=== PATIENT | male | born 1995 | race Caucasian/White ===

== ENCOUNTER 2016-07-13 19:58 | Emergency (ER) | payer SELFPAY ==
[~2016-07-13] VITALS: Ht 175.3 cm; Wt 73.0 kg
[~2016-07-13 19:58] MED LIST: ERYT400T4 PO; TRAM50 PO
[2016-07-13 19:59] VITALS: BP 141/84; PULSE 91; RESP 14; TEMP 98.7; O2SAT 99
[2016-07-13] MEDS ORDERED: SODIUM CHLOR 0.9% 1000 ML INJ 1,000 ML IV SCH (20:37)
[2016-07-13] MEDS ORDERED: SODIUM CHLORIDE 0.9% FLUSH 10 ML FLUSH IV FLUSH PRN (20:45)
[2016-07-13] MEDS ORDERED: ONDANSETRON HCL 4 MG/2 ML VIAL IVP ONE (20:45)
[2016-07-13 21:13] LABS: AUTOMATED NEUTROPHIL # 5.2 TH/MM3 (1.8-7.7); BASOPHIL % 0.3 % (0.0-2.0); EOSINOPHIL # 0.2 TH/MM3 (0-0.4); EOSINOPHIL % 1.9 % (0.0-4.0); HEMATOCRIT 44.2 % (39.0-51.0); HEMO FLAGS DIFF FINAL; LYMPH % 27.7 % (9.0-44.0); LYMPHOCYTE # 2.3 TH/MM3 (1.0-4.8); MEAN CORPUSCULAR HGB CONC 35.3 % (32.0-36.0); MONO % 7.1 % (0.0-8.0); PLATELET COUNT 222 TH/MM3 (150-450); RED BLOOD COUNT 5.19 MIL/MM3 (4.50-5.90); WHITE BLOOD COUNT 8.3 TH/MM3 (4.0-11.0)
[2016-07-13 21:28] LABS: ANION GAP 8 MEQ/L (5-15); BLOOD UREA NITROGEN 17 MG/DL (7-18); CHLORIDE 102 MEQ/L (98-107); GLOMERULAR FILTRATION RATE 74 ML/MIN (>89); POTASSIUM 3.6 MEQ/L (3.5-5.1); SODIUM (NA) 138 MEQ/L (136-145)
[2016-07-13 21:32] LABS: ALKALINE PHOSPHATASE 78 U/L (45-117); ALT (GPT) 84 U/L (12-78); AST (GOT) 37 U/L (15-37); TOTAL BILIRUBIN ADULT 0.9 MG/DL (0.2-1.0)
[2016-07-13] MEDS ORDERED: ZOFR4TAB3 SL (21:41)
--- NOTE | 2016-07-13 21:41 | PD ---
HPI Chief Complaint: GI Complaint Time Seen by Provider: 20:34 Travel History International Travel<30 days: No Contact w/Intl Traveler<30days: No Traveled to known affect area: No History of Present Illness HPI Patient 21-year-old male presents emergency primary for evaluation of nausea vomiting diarrhea. Nausea is been "bile" and states is clear. Denies any green emesis. Denies any blood in the emesis. Denies any blood or melena in the stool. Patient denies any abdominal pain. States she is otherwise healthy no other sick contacts. He did go out for her biopsy last night but thinks that that was not the cause of his symptoms. States his symptoms began gradually getting worse. PFSH Past Medical History Medical History: Denies Significant Hx Diminished Hearing: No Immunizations Current: Yes Tetanus Vaccination: Unknown Influenza Vaccination: No Past Surgical History Surgical History: No Previous Surgery Social History Alcohol Use: No Tobacco Use: Yes (04/02 PPD) Substance Use: No Allergies-Medications (Allergen,Severity, Reaction): Coded Allergies: Codeine (Verified Allergy, Unknown, gi upset, 07/13/16) Uncoded Allergies: "cillins" antibiotics (Allergy, Unknown, hives, 08/27/14) Reported Meds & Prescriptions Reported Meds & Active Scripts Active Zofran Odt (Ondansetron Odt) 4 Mg Tab 4 Mg SL Q6HR PRN Review of Systems Except as stated in HPI: all other systems reviewed are Neg Physical Exam Narrative GENERAL: Well-developed well-nourished appears well-hydrated no apparent distress. Nontoxic appearance. SKIN: Focused skin assessment warm/dry. HEAD: Atraumatic. Normocephalic. EYES: Pupils equal and round. No scleral icterus. No injection or drainage. ENT: No nasal bleeding or discharge. Mucous membranes pink and moist. NECK: Trachea midline. No JVD. CARDIOVASCULAR: Regular rate and rhythm. No murmur appreciated. RESPIRATORY: No accessory muscle use. Clear to auscultation. Breath sounds equal bilaterally. GASTROINTESTINAL: Abdomen soft, non-tender, nondistended. Hepatic and splenic margins not palpable. MUSCULOSKELETAL: No obvious deformities. No clubbing. No cyanosis. No edema. NEUROLOGICAL: Awake and alert. No obvious cranial nerve deficits. Motor grossly within normal limits. Normal speech. PSYCHIATRIC: Appropriate mood and affect; insight and judgment normal. Data Data Last Documented VS Vital Signs Date Time Temp Pulse Resp B/P Pulse Ox O2 Delivery O2 Flow Rate FiO2 07/13/16 19:59 98.7 91 14 141/84 99 Room Air Orders Complete Blood Count With Diff (07/13/16 20:37) Comprehensive Metabolic Panel (07/13/16 20:37) Lipase (07/13/16 20:37) Iv Access Insert/Monitor (07/13/16 20:37) Ecg Monitoring (07/13/16 20:37) Oximetry (07/13/16 20:37) Ondansetron Inj (Zofran Inj) (07/13/16 20:45) Sodium Chlor 0.9% 1000 Ml Inj (Ns 1000 M (07/13/16 20:37) Sodium Chloride 0.9% Flush (Ns Flush) (07/13/16 20:45) Labs Laboratory Tests Test 07/13/16 20:50 White Blood Count 8.3 TH/MM3 Red Blood Count 5.19 MIL/MM3 Hemoglobin 15.6 GM/DL Hematocrit 44.2 % Mean Corpuscular Volume 85.0 FL Mean Corpuscular Hemoglobin 30.0 PG Mean Corpuscular Hemoglobin 35.3 % Concent Red Cell Distribution Width 13.0 % Platelet Count 222 TH/MM3 Mean Platelet Volume 8.9 FL Neutrophils (%) (Auto) 63.0 % Lymphocytes (%) (Auto) 27.7 % Monocytes (%) (Auto) 7.1 % Eosinophils (%) (Auto) 1.9 % Basophils (%) (Auto) 0.3 % Neutrophils # (Auto) 5.2 TH/MM3 Lymphocytes # (Auto) 2.3 TH/MM3 Monocytes # (Auto) 0.6 TH/MM3 Eosinophils # (Auto) 0.2 TH/MM3 Basophils # (Auto) 0.0 TH/MM3 CBC Comment DIFF FINAL Differential Comment Sodium Level 138 MEQ/L Potassium Level 3.6 MEQ/L Chloride Level 102 MEQ/L Carbon Dioxide Level 28.0 MEQ/L Anion Gap 8 MEQ/L Blood Urea Nitrogen 17 MG/DL Creatinine 1.23 MG/DL Estimat Glomerular Filtration 74 ML/MIN Rate Random Glucose 108 MG/DL Calcium Level 9.4 MG/DL Total Bilirubin 0.9 MG/DL Aspartate Amino Transf 37 U/L (AST/SGOT) Alanine Aminotransferase 84 U/L (ALT/SGPT) Alkaline Phosphatase 78 U/L Total Protein 8.3 GM/DL Albumin 4.7 GM/DL Lipase 213 U/L [facility] Medical Decision Making Medical Screen Exam Complete: Yes Emergency Medical Condition: Yes Differential Diagnosis Gastritis, gastroenteritis, electrolyte adamantly, dehydration. Narrative Course Patient was roomed in emergency department, he appears well and in no apparent distress. He was given normal saline as well as Zofran. His labs are fairly unremarkable. His abdomen is benign. After labs resulted and fluids and Zofran were finished patient states he was feeling better. Discussed symptomatically management home and returned ED criteria. There is no indication further workup at this time. He is stable for discharge. Discussed need for follow-up the primary care physician and return to ED criteria. Diagnosis Primary Impression: Gastroenteritis Med/Other Pt SpecificInfo: Prescription(s) given Scripts Ondansetron Odt (Zofran Odt)4 Mg Tab4 Mg SL Q6HR PRN (Nausea/Vomiting) #30 TAB Ref 0 Prov:Leandro Page MD 07/13/16 Disposition: 01 DISCHARGE HOME Condition: Stable Leandro Page MD Jul 13, 2016 21:41
== END 2016-07-13 21:59 | disposition home or self-care (01) ==
LOC: NEPD 19:58
DX: K52.9 Noninfective gastroenteritis and colitis, unspecified (principal); F17.200 Nicotine dependence, unspecified, uncomplicated
CPT/HCPCS: 80053; 83690; 85025; 96374; 99284; J2405; J7030

== ENCOUNTER 2016-09-17 23:32 | Emergency (ER) | payer SELFPAY ==
[~2016-09-17] VITALS: Ht 175.3 cm; Wt 75.0 kg
[~2016-09-17 23:32] MED LIST changes: -ERYT400T4 PO; -TRAM50 PO; +ZOFR4TAB3 SL
[2016-09-17 23:34] VITALS: BP 135/71; PULSE 99; RESP 16; TEMP 99.4; O2SAT 99
[2016-09-18] MEDS ORDERED: IBUP800T23 PO (00:02)
[2016-09-18] MEDS ORDERED: FLUT50SP EACH NARE (00:02)
[2016-09-18] MEDS ORDERED: AZIT250T3 PO (00:02)
[2016-09-18] MEDS ORDERED: IPRA0.06 EACH NARE (00:02)
--- NOTE | 2016-09-18 00:02 | PD ---
HPI Chief Complaint: Cold / Flu Symptoms Time Seen by Provider: 23:57 Travel History International Travel<30 days: No Contact w/Intl Traveler<30days: No Traveled to known affect area: No History of Present Illness HPI Patient is a 21-year-old male presenting to the emergency department for evaluation of nasal congestion, runny nose, sinus pressure, cough. He states his symptoms started 3 days ago, he has been utilizing DayQuil, NyQuil and acetaminophen as needed. He reports some improvement with DayQuil and NyQuil but his symptoms quickly returned when the medication wears off. He denies any fevers, nausea, vomiting, abdominal pain or shortness of breath. PFSH Past Medical History Medical History: Denies Significant Hx Diminished Hearing: No Immunizations Current: Yes Tetanus Vaccination: Unknown Influenza Vaccination: No Past Surgical History Surgical History: No Previous Surgery Social History Alcohol Use: No Tobacco Use: Yes (04/02 PPD) Substance Use: No Allergies-Medications (Allergen,Severity, Reaction): Coded Allergies: Penicillin (Verified Allergy, Severe, 09/17/16) Codeine (Verified Allergy, Unknown, gi upset, 09/17/16) Uncoded Allergies: "cillins" antibiotics (Allergy, Unknown, hives, 08/27/14) Reported Meds & Prescriptions Reported Meds & Active Scripts Active No Active Prescriptions or Reported Medications Review of Systems Except as stated in HPI: all other systems reviewed are Neg HENT: Positive: Rhinitis, Congestion, Other (sinus pressure) Respiratory: Positive: Cough Musculoskeletal: Positive: Myalgias Physical Exam Narrative GENERAL: Well-nourished, well-developed patient. SKIN: Focused skin assessment warm/dry. HEAD: Normocephalic. Tenderness to palpation over maxillary sinuses ENT: Mucosa pink and moist. No erythema or exudates. No uvular edema. No uvular , palatal, or tonsillar deviation. Airway patent. Nasal turbinates are edematous without nasal blood, purulent drainage or septal hematoma. EYES: No scleral icterus. No injection or drainage. NECK: Supple, trachea midline. No JVD or lymphadenopathy. CARDIOVASCULAR: Regular rate and rhythm without murmurs, gallops, or rubs. RESPIRATORY: Breath sounds equal bilaterally. No accessory muscle use. GASTROINTESTINAL: Abdomen soft, non-tender, nondistended. MUSCULOSKELETAL: No cyanosis, or edema. BACK: Nontender without obvious deformity. No CVA tenderness. Data Data Last Documented VS Vital Signs Date Time Temp Pulse Resp B/P Pulse Ox O2 Delivery O2 Flow Rate FiO2 09/17/16 23:48 16 09/17/16 23:34 99.4 99 135/71 99 MDM Medical Decision Making Medical Screen Exam Complete: Yes Emergency Medical Condition: Yes Interpretation(s) Vital Signs Date Time Temp Pulse Resp B/P Pulse Ox O2 Delivery O2 Flow Rate FiO2 09/17/16 23:48 16 09/17/16 23:34 99.4 99 16 135/71 99 Differential Diagnosis URI versus bronchitis versus pneumonia versus sinusitis versus other Narrative Course Patient is a 21-year-old male presenting with 3 days of cold symptoms. Patient' s vital signs are stable, physical examination appears consistent with an upper respiratory infection. Patient was encouraged to continue with symptomatic management. He was advised that a viral illness can last between 5-7 days, his symptoms should improve on their own gradually. He was advised that he would be given a prescription for backup antibiotic however he was encouraged to avoid taking antibiotic for another 3-5 days. He was encouraged to follow-up with her primary doctor, he was encouraged to return to emergency department immediately for any new or worsening symptoms. Patient verbalized understanding of instructions. Patient stable for discharge. Diagnosis Primary Impression: Upper respiratory infection Qualified Code: J00 - Acute nasopharyngitis Referrals: [facility] Primary Care Physician Patient Instructions: General Instructions, Upper Respiratory Infection (ED) Additional Instructions: Follow-up with a primary doctor or at the [facility] Continue symptomatic management If you begin antibiotic complete full course as prescribed Return to emergency department for any new or worsening symptoms Med/Other Pt SpecificInfo: Prescription(s) given Scripts Ibuprofen 800 Mg Fbs152 Mg PO Q6HR PRN (PAIN) #40 TAB Ref 0 Prov:Kelin ButlerP 09/18/16 Ipratropium Nasal 0.06% Spray1 [place] EACH NARE TID PRN (NASAL CONGESTION) #1 BOTTLE Ref 0 Prov:Kelin ButlerP 09/18/16 Fluticasone Nasal [place] 50 Mcg/Act [id number] Mcg EACH NARE BID #1 BOTTLE Ref 0 50 mcg/spray Prov:Kelin Butler 09/18/16 Azithromycin 250 Mg Zib720 Mg PO DIRECTED #6 TAB Ref 0 Take 2 tabs (500 mg) on day 1 then 1 tab daily x 4 days. Prov:Kelin Butler 09/18/16 Disposition: 01 DISCHARGE HOME Condition: Stable Kelin Butler Sep 18, 2016 00:02
== END 2016-09-18 01:51 | disposition home or self-care (01) ==
LOC: NEPK 23:32
DX: J06.9 Acute upper respiratory infection, unspecified (principal); J00 Acute nasopharyngitis [common cold]; F17.210 Nicotine dependence, cigarettes, uncomplicated
CPT/HCPCS: 99284